=== PATIENT | female | born 1955 | race Caucasian/White ===

== ENCOUNTER → 2017-01-24 | Day surgery (SDC) | payer BC ==
[~2017-01-24] VITALS: Ht 162.5 cm; Wt 63.5 kg
[~2017-01-24] MED LIST: AMLODIPINE BES2.5 MG PO; CALCIUM 600600 M1 PO; FIBERCON625 MG PO; FISH OIL 10001000 MG PO; LOVASTATIN20 MG PO; MAXZIDE 25 MG-31 TAB PO; MULTIVITAMIN1 CTB PO; OMEGA-3 + VITA1 EAC1 PO; VITAMIN D50000 I3 PO
--- NOTE | ~2017-01-24 | O ---
[place], [place] OPERATIVE NOTE NAME: MARCUS JOYA UNIT #: [id number] ROOM: DOCTOR: JOANNA ALOSNO MD BIRTHDATE: [birth year] DOS: INDICATION: The patient is a 61-year-old who presented with chief complaint of concern about colonic screening. ALLERGIES: No known medication. SOCIAL HISTORY: Nonsmoker and social alcohol consumer. FAMILY HISTORY: Noncontributory. PAST MEDICAL HISTORY: Hyperlipidemia, hypertension. PAST SURGICAL HISTORY: Cosmetic repairs. PROCEDURE: Today's procedure part of investigation is colonoscopy. PREMEDICATION: Versed and Diprivan. SCOPE: Olympus forward-viewing colonoscope 10L video. REPORT: After putting the patient in the left lateral position and after application of lubricant to the scope, the scope was introduced. Thereafter, under direct visualization, I advanced through the length of colon without difficulty. Base of the cecum explored, appendiceal orifice identified, and ileocecal valve was defined. Photographic series was obtained. Air was suctioned out gradually. Patient was extubated, tolerated procedure well. IMPRESSION: Normal colonoscopic examination. PLAN AND DISCUSSION: Regular diet. ACTIVITY: Ad alexandra. FOLLOWUP: As outpatient. Thank you very much again. [place], [place] OPERATIVE NOTE NAME: MARCUS JOYA UNIT #: [id number] ROOM: DOCTOR: JOANNA ALONSO MD BIRTHDATE: [birth year] JOANNA ALONSO MD CM:OPRECORD:OPERATIVE NOTE [id number] JOANNA ALONSO MD 01/24/17 1013 interface
[2017-01-24 07:17] VITALS: BP 136/64
[2017-01-24 07:41] VITALS: BP 96/54
[2017-01-24 07:51] VITALS: BP 111/63
[2017-01-24 08:10] VITALS: BP 113/71
== END | disposition home or self-care (01) ==
LOC: SDC 01-18 08:00
DX: Z12.11 Encounter for screening for malignant neoplasm of colon (principal); E78.5 Hyperlipidemia, unspecified; I10 Essential (primary) hypertension; Z98.890 Other specified postprocedural states; Z82.49 Family history of ischemic heart disease and other diseases of the circulatory system

== ENCOUNTER → 2017-02-23 | Outpatient (CLI) | payer BC ==
[2017-02-23 13:17] LABS: ALBUMIN 3.7 gm/dl (3.1-4.5); ALKALINE PHOSPHATASE 87 U/L (45-117); BUN 14 mg/dl (7-24); CHLORIDE 104 mmol/L (98-107); CHOLESTEROL 186 mg/dL (<200); CREATININE 1.01 mg/dL (0.55-1.02); HDL CHOLESTEROL 52 mg/dl (40-60); LDL CHOLESTEROL 86 mg/dL (9-159); POTASSIUM 3.5 mmol/L (3.5-5.1); SGOT/AST 23 IU/L (3-35); SGPT/ALT 37 U/L (12-78); SODIUM 139 mmol/L (136-145); TOTAL PROTEIN 8.4 gm/dL (6.4-8.2); TRIGLYCERIDES 238 mg/dl (<150); VLDL CHOLESTEROL 48 mg/dL (6-40)
== END | disposition home or self-care (01) ==
LOC: LAB 12:14
PROVIDERS: Pediatrics
DX: E78.2 Mixed hyperlipidemia (principal); E78.1 Pure hyperglyceridemia; Z79.899 Other long term (current) drug therapy

== ENCOUNTER → 2019-02-26 | Outpatient (CLI) | payer OTHER | END | disposition home or self-care (01) | LOC: LAB 08:21 | DX: Z11.1 Encounter for screening for respiratory tuberculosis (principal) ==

== ENCOUNTER → 2022-11-15 | Outpatient (CLI) | payer OTHER | END | disposition home or self-care (01) | LOC: US 11-14 14:00 | PROVIDERS: ATTEND Internal Medicine | DX: M79.602 Pain in left arm (principal); R22.32 Localized swelling, mass and lump, left upper limb ==

== ENCOUNTER → 2023-07-13 | Outpatient (CLI) | payer OTHER | END | disposition home or self-care (01) | LOC: RAD 06-29 08:00 | PROVIDERS: ATTEND Internal Medicine | DX: M81.0 Age-related osteoporosis without current pathological fracture (principal); E11.9 Type 2 diabetes mellitus without complications; N95.0 Postmenopausal bleeding; Z78.0 Asymptomatic menopausal state ==

== ENCOUNTER 2024-01-29 12:54 | Inpatient (IN) | payer OTHER, MEDICARE ==
[~2024-01-29] VITALS: Ht 162.6 cm; Wt 68.5 kg
[2024-01-29 13:50] VITALS: BP 120/56
[2024-01-29] MEDS ORDERED: SODIUM CHLORIDE 0.9% 1,000 ML IV SCH (14:10)
[2024-01-29] MEDS ORDERED: METOPROLOL SUCC25 M2 PO (14:19)
[2024-01-29] MEDS ORDERED: FARXIGA5 M1 PO (14:35)
[2024-01-29] MEDS ORDERED: FISH OIL 500 M1 EAC3 PO (14:36)
[2024-01-29] MEDS ORDERED: ROSUVASTATIN CA20 MG PO (14:37)
[2024-01-29 14:38] LABS: BASO % 0.2 % (0.0-1.0); EOS % 0.3 % (1.0-4.0); HEMATOCRIT 37.5 % (37.0-47.0); LYMPH # 0.7 10*3/uL (1.3-4.4); MEAN CELL VOLUME 89.3 fl (81.0-99.0); MEAN CORPUSCULAR HGB CONC 33.6 g/dl (33.0-37.0); MONO % 8.3 % (3.0-9.0); NEUT # 10.1 10*3/uL (2.3-7.9); NEUT % 84.5 % (47.0-73.0); PLATELET COUNT AUTOMATED 167 10*3/uL (130-400); RED CELL DISTRI WIDTH 13.2 % (0-14.5); WHITE BLOOD COUNT 11.9 10*3/uL (4.8-10.8)
[2024-01-29] MEDS ORDERED: Ondansetron Hydrochloride 4 MG/2 ML VIAL IV PRN (15:00)
[2024-01-29] MEDS ORDERED: Ceftriaxone Sodium 1 GM in SYRINGE INFUSION 10 ML IV SCH (15:00)
[2024-01-29 15:01] LABS: POTASSIUM 3.4 mmol/L (3.4-5.1); TOTAL PROTEIN 7.1 gm/dL (6.0-8.0)
[2024-01-29 15:32] LABS: BILIRUBIN Negative (Negative); BLOOD Negative (Negative); CLARITY Clear (Clear); COLOR Yellow (Yellow); GLUCOSE 2+ (Negative); KETONE Negative (Negative); LEUKO ESTERASE Trace (Negative); NITRITE Negative (Negative); PH 6.5 (4.5-8.0); SPECIFIC GRAVITY 1.015 (1.001-1.030)
[2024-01-29 15:42] LABS: URINE CREATININE RANDOM 79.71 mg/dL
[2024-01-29 16:00] VITALS: BP 124/56
[2024-01-29 16:09] LABS: BACTERIA 1+
[2024-01-29] MEDS ORDERED: ACETAMINOPHEN 325 MG TAB PO PRN (16:15)
[2024-01-29 20:00] VITALS: BP 117/52
[2024-01-29] MEDS ORDERED: HYDROmorphONE Hydrochloride 0.5 MG/0.5 ML SYRINGE IV ONE (21:25)
[2024-01-29] MEDS ORDERED: ZOLPIDEM TARTRATE 5 MG TAB PO PRN (22:00)
[2024-01-30] VITALS: BP 114/52
[2024-01-30 06:40] LABS: BASO % 0.4 % (0.0-1.0); EOS % 0.1 % (1.0-4.0); HEMATOCRIT 35.9 % (37.0-47.0); LYMPH # 0.8 10*3/uL (1.3-4.4); MEAN CELL VOLUME 89.5 fl (81.0-99.0); MEAN CORPUSCULAR HGB 29.7 pg (27.0-31.0); MEAN CORPUSCULAR HGB CONC 33.1 g/dl (33.0-37.0); MEAN PLATELET VOLUME 10.3 fl (9.6-12.3); MONO % 10.4 % (3.0-9.0); NEUT # 7.7 10*3/uL (2.3-7.9); NEUT % 80.2 % (47.0-73.0); PLATELET COUNT AUTOMATED 180 10*3/uL (130-400); RED BLOOD COUNT 4.01 10*6/uL (4.10-5.10); RED CELL DISTRI WIDTH 13.2 % (0-14.5); WHITE BLOOD COUNT 9.6 10*3/uL (4.8-10.8)
[2024-01-30 06:57] LABS: POTASSIUM 3.5 mmol/L (3.4-5.1)
[2024-01-30 08:00] VITALS: BP 126/55
[2024-01-30 08:11] LABS: HBSAG Negative (Negative); HEP B CORE AB, IGM Negative (Negative); HEPATITIS C ANTIBODY Non Reactive (Non Reactive)
[2024-01-30] MEDS ORDERED: DEXTROSE 10 % IN WATER 250 ML IV PRN (08:40)
[2024-01-30] MEDS ORDERED: INSULIN REGULAR, HUMAN 1 UNIT/0.01 ML SC SCH (11:30)
[2024-01-30 12:00] VITALS: BP 124/56
[2024-01-30] MEDS ORDERED: POTASSIUM CHLORIDE 20 MEQ TAB PO ONE (15:15)
[2024-01-30] MEDS ORDERED: Ceftriaxone Sodium 1 GM in SYRINGE INFUSION 10 ML IV SCH (18:00)
[2024-01-30 20:00] VITALS: BP 127/51
[2024-01-30] MEDS ORDERED: busPIRone Hydrochloride 10 MG TAB PO PRN (21:25)
[2024-01-31] VITALS: BP 123/47
[2024-01-31 08:00] VITALS: BP 151/55
[2024-01-31] MEDS ORDERED: BARIUM SULFATE 2% 450 ML BOT PO SCH (09:00)
[2024-01-31 09:11] LABS: BASO # 0.1 10*3/uL (0.0-0.1); BASO % 0.7 % (0.0-1.0); EOS % 0.4 % (1.0-4.0); HEMATOCRIT 37.1 % (37.0-47.0); LYMPH # 1.3 10*3/uL (1.3-4.4); MEAN CELL VOLUME 90.3 fl (81.0-99.0); MEAN CORPUSCULAR HGB 29.4 pg (27.0-31.0); MEAN CORPUSCULAR HGB CONC 32.6 g/dl (33.0-37.0); MEAN PLATELET VOLUME 9.6 fl (9.6-12.3); MONO # 1.3 10*3/uL (0.1-1.0); MONO % 14.2 % (3.0-9.0); NEUT # 6.1 10*3/uL (2.3-7.9); NEUT % 68.4 % (47.0-73.0); PLATELET COUNT AUTOMATED 212 10*3/uL (130-400); RED BLOOD COUNT 4.11 10*6/uL (4.10-5.10); RED CELL DISTRI WIDTH 13.4 % (0-14.5)
[2024-01-31 09:33] LABS: ALKALINE PHOSPHATASE 218 U/L (46-116); BUN 9 mg/dl (9-23); CHLORIDE 108 mmol/L (98-107); POTASSIUM 4.2 mmol/L (3.4-5.1); SGPT/ALT 83 U/L (5-49); TOTAL PROTEIN 6.9 gm/dL (6.0-8.0)
[2024-01-31] MEDS ORDERED: Ceftriaxone Sodium 2 GM in SYRINGE INFUSION 20 ML IV SCH (10:00)
[2024-01-31] MEDS ORDERED: amLODIPine besylate 2.5 MG TAB PO SCH (10:00)
[2024-01-31 12:00] VITALS: BP 123/66
[2024-01-31 16:00] VITALS: BP 152/58
[2024-01-31] MEDS ORDERED: CEFDINIR300 MG PO (16:26)
[2024-01-31 20:00] VITALS: BP 164/73
[2024-01-31] MEDS ORDERED: METOPROLOL SUCCINATE XR 25 MG TAB PO SCH (22:00)
== END 2024-01-31 21:00 | disposition home or self-care (01) | DRG 872 ==
LOC: 4E 12:54
PROVIDERS: Internal Medicine Nephrology; ADMIT Internal Medicine; ATTEND Internal Medicine
DX: A41.51 Sepsis due to Escherichia coli [E. coli] (principal); N39.0 Urinary tract infection, site not specified; N17.9 Acute kidney failure, unspecified; E87.1 Hypo-osmolality and hyponatremia; E87.6 Hypokalemia; R74.01 Elevation of levels of liver transaminase levels; I10 Essential (primary) hypertension; B95.62 Methicillin resistant Staphylococcus aureus infection as the cause of diseases classified elsewhere; E87.8 Other disorders of electrolyte and fluid balance, not elsewhere classified; E11.9 Type 2 diabetes mellitus without complications; Z79.899 Other long term (current) drug therapy

== ENCOUNTER → 2024-02-28 | Outpatient (CLI) | payer OTHER, MEDICARE ==
[~2024-02-28] MED LIST changes: +CEFDINIR300 MG PO; +FARXIGA5 M1 PO; +FISH OIL 500 M1 EAC3 PO; +METOPROLOL SUCC25 M2 PO; +ROSUVASTATIN CA20 MG PO; +SINCALIDE 5 MCG VIAL IV SCH; +SINCALIDE IV STA; +SODIUM CHLORIDE 0.9% IV STA; +Technetium Tc 99M Mebrofenin 1 KIT KIT IV SCH
== END | disposition home or self-care (01) ==
LOC: US 02-12 07:30 → NM 02-21 07:00 → US 11:57 → NM 12:30
PROVIDERS: ATTEND Internal Medicine
DX: R10.84 Generalized abdominal pain (principal); R11.10 Vomiting, unspecified